=== PATIENT | female | born 1965 | race African-American/Black ===

== ENCOUNTER → 2016-05-28 | Day surgery (SDC) | payer OTHER ==
[~2016-05-28] MED LIST: ACETAMINOPHEN PO; ACETAMINOPHEN650 M1 PO; ADALATCC PO; ADVAIR 5001 DISK W/D PO; ADVAIR INH; ALBUTEROL 0.5ML INH; ALBUTEROL MININEB NEB; ALBUTEROL NEB; ALBUTEROL/ATROVENT NEB; ALBUTEROL17 GM INH; ALLERGY RELIEF10 M1 PO; ALLERGY25 MG PO; ASPIRIN EC81 M1 PO; ASPIRIN PO; ASPIRIN81 M1 PO; ASPIRIN81 MG PO; ASTHMACORT; AUGMENTIN PO; AZMACORT20 GM; AZMACORT20 GM INH; BACTRIM DS TABL1 TA2 PO; CARVEDILOL12.5 MG PO; CARVEDILOL25 MG PO; CLARITIN10 MG PO; COLACE PO; COLCRYS0.6 MG PO; COMBIVENT INH14.7 G1 IH; COMBIVENT INH14.7 GM; COMBIVENT INH14.7 GM INH; COMBIVENT MININEB NEB; COMBIVENT U/D3 M2 INH; COMBIVENT14.7 GM INH; COREG PO; COUMADIN; DARVOCET-N 1001 TAB PO; DEMADEX PO; DOCU SOFT100 M1 PO; DOXYCYCLINE HY100 M1 PO; DOXYCYCLINE PO; DUONEB 2.5-0.5 M3 ML INH; DUONEB 2.5-0.5 M3 ML NEB; ENTRESTO; FEOSOL PO; FERRO-TIME325 MG PO; FERROUS SULFATE PO; FLONASE16 GM; FLOVENT DISKU100 MCG IH; FLOVENT HFA10.6 G1 INH; FLOVENT HFA12 GM INH; FLOVENT HFA13 GM INH; GUAIFENESIN LA600 M1 PO; HUMIBID-LA600 MG PO; HUMIBID1200 MG PO; HYDRALAZINE HCL50 MG PO; HYDROCODON-ACE1 EAC1 PO; HYDROCODON-ACE1 EAC5 PO; IRON PO; IRON325 ( 651 PO; IRON325 ( 652 PO; K-DUR10 MEQ PO; K-DUR20 ME1 PO; K-DUR20 ME2 PO; KCL PO; KLONOPIN0.5 MG PO; KLOR-CON PO; LASIX; LASIX PO; LEVAQUIN PO; LEVAQUIN750 MG PO; LEXAPRO PO; LISINOPRIL PO; LISINOPRIL2.5 MG PO; LISINOPRIL20 MG PO; LORTAB 10-5001 EACH PO; LORTAB 7.5-5001 TAB PO; LOSARTAN POTAS100 MG PO; MEDROL DOSEPAK4 MG PO; MEDROL PO; MEDROL4 MG/DOSE- PO; METOPROLOL TAR25 MG PO; MOTRIN600 MG PO; MUCINEX; MULTI VITAMIN1 EACH PO; MULTI-DAY VITAM1 TAB PO; MULTI-VITAMIN1 EAC1 PO; MYLANTA GAS80 MG PO; NAPROSYN500 MG PO; NIFEDIPINE ER90 M1 PO; NIFEDIPINE ER90 MG PO; PAIN RELIEF325 M1 PO; PERCOCET5/325 PO; PHENERGAN PO; PHENOLATE; PREDNISONE PO; PREDNISONE10 MG/DOSE PO; PROCARDIA XL PO; PROCARDIA90 MG/BOTT PO; PROVERA10 MG PO; RANITIDINE HCL150 M1 PO; ROBITUSSIN A-C S5 ML PO; ROBITUSSIN DM T10 ML PO; ROBITUSSIN100 MG/51 PO; SEREVENT D50 MCG/DIS PO; SYMBICORT INH; TEMOVATE30 GM TOP; THEOPHYLLIN PO; TORSEMIDE10 MG PO; TRAMADOL HCL50 M2 PO; TUSSIN15 MG/5 M1 PO; VIBRAMYCIN100 M1 DOB; VIBRAMYCIN100 M1 PO; VICODIN 5/500 T1 TAB PO; ZANTAC PO; ZANTAC150 MG PO; ZITHROMAX PO; ZITHROMAX1 G/PKT PO
--- NOTE | ~2016-05-28 | US85 ---
[facility] A Service of [facility] RADIOLOGY TEXT RESULTS PATIENT: EPIFANIO GALINDO LOCATION: [place] OPERATOR : 63 UNIT #: [id number] AGE: [address]: DOUG ROMEO SEX: F ORDER DR: [id number] [facility] [address] [place], [place] [address] [id number] O MR#: [id number] Acc #: [id number] NAME: EPIFANIO GALINDO. : 1965 SEX: F STUDY DATE/TIME: 05/28/2016 18:12 UNIT: [place] OPERATOR ROOM: STUDY DESCRIPTION: LE Veins Unilat or Ltd Stdy Attending Physician: Doug Romeo Aprn Referring Physician: Primary Care Physician No Ordering Physician: Ed Teja Bryant M.D. Primary Care Physician: Primary Care Physician No MEDICAL IMAGING REPORT This report is preliminary unless electronic signature is present EXAM Right lower extremity venous duplex, 05/28/2016 HISTORY Right lower extremity pain, pain in right knee and thigh for 1 day with history of previous right lower extremity DVT July 2015, evaluate for deep vein thrombosis. TECHNIQUE Venous ultrasound examination of the right lower extremity was performed using grayscale, spectral Doppler and color flow Doppler imaging. FINDINGS The examination is negative. There is no evidence of right lower extremity deep venous thrombus from the groin to the lower calf. Visualized greater saphenous vein is also patent. IMPRESSION Negative examination. No evidence of right lower extremity deep venous thrombosis. Dictated by... Kyree Melara M.D. THIS IS AN ELECTRONICALLY VERIFIED REPORT Kyree Melara M.D. at 05/29/2016 8:10 AM KRT/jamey TD: 05/28/2016 23:14 JOB #: [id number] MEDICAL IMAGING REPORT [facility] A Service [facility] RADIOLOGY TEXT RESULTS PATIENT: EPIFANIO GALINDO LOCATION: [facility] : 63 UNIT #: [id number] AGE: [address]: DOUG ROMEO SEX: F ORDER DR: COPY
--- NOTE | ~2016-05-28 | CR170 ---
[facility] A Service of [facility] RADIOLOGY TEXT RESULTS PATIENT: EPIFANIO GALINDO LOCATION: [facility] : 63 UNIT #: [id number] AGE: [address]: DOUG ROMEO SEX: F ORDER DR: [id number] [facility] [address] [place], [place] [address] [id number] O MR#: [id number] Acc #: [id number] NAME: EPIFANIO GALINDO. : 1965 SEX: F STUDY DATE/TIME: 05/28/2016 20:28 UNIT: [facility] ROOM: STUDY DESCRIPTION: CR Knee 2 Views Rt Attending Physician: Doug Romeo Aprn Referring Physician: Primary Care Physician No Ordering Physician: Diane Hernadez M.D. Primary Care Physician: No Primary Care Physician MEDICAL IMAGING REPORT This report is preliminary unless electronic signature is present EXAM 2 views right knee. Date: 05/28/2016 at 20:28 HISTORY Right anterior knee pain since yesterday. No known injury. COMPARISON None. FINDINGS No acute fracture is seen. There is advanced medial and patellofemoral compartment degenerative change with abhc-al-sfys configuration and osteophyte formation. Prominent lateral compartment osteophyte formation and tibial the spine spurring is also noted. What appears be a calcified loose body is seen within the infrapatellar region measuring 1.8 x 1.2 cm. A cannulated screw extends into the medial tibial plateau. No definite joint effusion. IMPRESSION 1. Advanced degenerative changes of the patellofemoral and medial compartment with oclc-vh-pxnt configuration. What appears to be a calcified loose body is seen in the infrapatellar region measuring up to 1.8 cm. 2. Surgical changes of the tibial plateau. 3. Varus configuration of the knee. Dictated by... Khadra Gutierrez M.D. [facility] A Service of [facility] RADIOLOGY TEXT RESULTS PATIENT: EPIFANIO GALINDO LOCATION: [facility] : 63 UNIT #: [id number] AGE: [address]: DOUG ROMEO SEX: F ORDER DR: THIS IS AN ELECTRONICALLY VERIFIED REPORT Khadra Gutierrez M.D. at 05/29/2016 2:43 PM Iker TD: 05/29/2016 00:14 JOB #: [id number] MEDICAL IMAGING REPORT COPY
--- NOTE | ~2016-05-28 | EKG ---
PATIENT: EPIFANIO GALINDO UNIT #: [id number] Ventricular Rate: 92 BPM Atrial Rate: 92 BPM P-R Interval: 216 ms QRS Duration: 104 ms Q-T Interval: 388 ms QTC Calculation(Bezet): 479 ms P [place]: 76 degrees Calculated R [place]: -6 degrees Calculated T [place]: 74 degrees Diagnosis Line: Sinus rhythm with 1st degree A-V block Diagnosis Line: Otherwise normal ECG Diagnosis Line: Diagnosis Line: Confirmed by RAJWINDER WHITLEY MD ([id number]) on 05/29/2016 Diagnosis Line: 6:22:55 PM INTERPRETING MD: ANGI HENRIQUEZ
--- NOTE | ~2016-05-28 | CR63 ---
[facility] A Service of [facility] RADIOLOGY TEXT RESULTS PATIENT: EPIFANIO GALINDO LOCATION: [facility] : 63 UNIT #: [id number] AGE: [address]: DOUG ROMEO SEX: F ORDER DR: [id number] [facility] [address] [place], [place] [address] [id number] O MR#: [id number] Acc #: [id number] NAME: EPIFANIO GALINDO. : 1965 SEX: F STUDY DATE/TIME: 05/28/2016 17:36 UNIT: [facility] ROOM: STUDY DESCRIPTION: CR Chest 2 View Attending Physician: Doug Romeo Aprn Referring Physician: Primary Care Physician No Ordering Physician: Ed Teja Bryant M.D. Primary Care Physician: Primary Care Physician No MEDICAL IMAGING REPORT This report is preliminary unless electronic signature is present EXAM PA and lateral chest DATE 05/28/2016 at 17:36 HISTORY Shortness of breath, cough and low-grade fever for 4 days. COMPARISON AP portable chest 11/27/2015 FINDINGS The study is degraded secondary to underpenetration related to patient's body habitus. There is stable cardiac enlargement with probable central vascular congestion. There may be mild central vascular congestion, but no overt changes of pulmonary edema are seen. No consolidation. No pleural effusion or pneumothorax. Right neck-approach central line extends to the upper right atrial level. No visible pneumothorax. IMPRESSION 1. Study limited by patient body habitus. 2. Stable cardiomegaly with mild central vascular congestion. No overt changes of pulmonary edema are appreciated. Dictated by... Khadra Gutierrez M.D. THIS IS AN ELECTRONICALLY VERIFIED REPORT Khadra Gutierrez M.D. at 05/29/2016 2:42 PM [facility] A Service of [facility] RADIOLOGY TEXT RESULTS PATIENT: EPIFANIO GALINDO LOCATION: [facility] : 63 UNIT #: [id number] AGE: [address]: DOUG ROMEO SEX: F ORDER DR: TD: 05/28/2016 22:57 JOB #: [id number] MEDICAL IMAGING REPORT COPY
[2016-05-28 18:04] LABS: ALBUMIN SERUM 3.2 g/dL (3.5-5.0); BILIRUBIN,TOTAL 0.6 mg/dL (0.2-2.0); BUN/CREATININE RATIO 5.71; CALCIUM SERUM 8.4 mg/dL (8.4-10.2); CREATININE SERUM 3.5 mg/dL (0.6-1.4); GLOM FILT RATE Estimated 17.6 mL/min (>60); POTASSIUM 4.1 mmol/L (3.5-5.1); PROTEIN TOTAL SERUM 8.4 g/dL (6.0-8.3)
[2016-05-28 19:21] LABS: BASOPHIL% 0.6 % (0-2.5); EOSINOPHIL# 0.1 X10e3 (0-0.7); HEMATOCRIT 35.7 % (35.0-45.0); HEMOGLOBIN 11.5 gm/dL (12.0-16.0); LYMPHOCYTE# 1.1 X10e3 (1.0-3.5); LYMPHOCYTE% 15.2 % (17.0-45.0); MEAN CELL VOLUME 85.9 FL (83-96); MEAN CORPUSCULAR HEMOGLOBIN 27.5 PG (28-34); MEAN CORPUSCULAR HGB CONC 32.1 g/dL (30-36); MEAN PLATELET VOLUME 9.4 FL (6.5-11.5); MONOCYTE# 0.5 X10e3 (0-1.0); MONOCYTE% 7.9 % (3.0-12.0); NEUTROPHIL# 5.2 X10e3 (1.5-7.1); NEUTROPHIL% 75.3 % (40-75); PLATELET COUNT 132 X10e3 (140-420); RED BLOOD COUNT 4.16 X10e (3.90-5.30); RED CELL DISTRIBUTION WIDTH 17.4 % (11.0-15.5); WHITE BLOOD COUNT 6.9 X10e3 (4.0-10.5)
[2016-05-28 19:24] LABS: DIFF IND NO
[2016-05-28 20:02] LABS: INR 1.8; PROTHROMBIN TIME (PATIENT) 19.9 SECONDS (9.6-11.5)
[2016-05-28 20:11] LABS: POC - CKMB <1.0 ng/mL (0.0-7.9); POC - TROPONIN <0.05 ng/mL (<=0.05)
== END | disposition home or self-care (01) ==
LOC: CED 17:05 → COPS 17:40
PROVIDERS: Emergency Medicine; Nurse Practitioner Family
DX: M25.561 Pain in right knee (principal); M25.551 Pain in right hip; M79.651 Pain in right thigh; N19 Unspecified kidney failure; I10 Essential (primary) hypertension; J44.9 Chronic obstructive pulmonary disease, unspecified; J45.909 Unspecified asthma, uncomplicated; Z86.711 Personal history of pulmonary embolism; Z79.899 Other long term (current) drug therapy; Z79.82 Long term (current) use of aspirin; Z79.2 Long term (current) use of antibiotics; Z88.1 Allergy status to other antibiotic agents
CPT/HCPCS: 29530; 71020; 73560; 80053; 82553; 84484; 85025; 85610; 85730; 93005; 93971; 94640; 99284

== ENCOUNTER 2016-07-23 11:45 | Emergency (ER) | payer OTHER ==
--- NOTE | ~2016-07-23 | CR63 ---
[facility] A Service of [facility] RADIOLOGY TEXT RESULTS PATIENT: EPIFANIO GALINDO LOCATION: SED : 63 UNIT #: [id number] AGE: [address]: Aida Govea MD SEX: F ORDER DR: [id number] [address] [address] [id number] E MR#: [id number] Acc #: [id number] NAME: EPIFANIO GALINDO : 1965 SEX: F STUDY DATE/TIME: 07/23/2016 12:21 UNIT: SED ROOM: STUDY DESCRIPTION: CR Chest 2 View Attending Physician: Aida Govea M.D. Ordering Physician: Aida Govea M.D. Primary Care Physician: Reynaldo Zuniga A.P.R.N. MEDICAL IMAGING REPORT This report is preliminary unless electronic signature is present. EXAM Chest 2 views 07/23/2016 1221 hours HISTORY 51-year-old woman with 4-day history of shortness of air, vomiting and congestion, history of renal failure on dialysis, asthma. COMPARISON 05/28/2016. FINDINGS The patient is unable to stand and therefore seated AP and lateral views were performed on a stretcher. There is a right central venous catheter with tip in the right atrium. There is stable cardiomegaly and tortuous aorta. There is enlargement of the pulmonary arteries similar to prior study suggesting underlying pulmonary arterial hypertension. There is no definite acute pulmonary density or pleural effusion. IMPRESSION Exam is limited by seated technique and large body habitus. Right central venous catheter tip is in the right atrium similar to 05/28/2016. There is stable cardiomegaly. There is enlargement of the pulmonary arteries suggesting pulmonary arterial hypertension. There is no definite acute pulmonary density or pleural effusion. Dictated by... Chana Grimes M.D. THIS IS AN ELECTRONICALLY VERIFIED REPORT Chana Grimes M.D. at 07/23/2016 2:29 PM [facility] A Service of [facility] RADIOLOGY TEXT RESULTS PATIENT: EPIFANIO GALINDO [place] [facility] [place] 63 UNIT #: [id number] AGE: [address]: Aida Govea MD SEX: F ORDER DR: PEGGY/edil TD: 07/23/2016 13:35 JOB #: [id number] MEDICAL IMAGING REPORT Page 1 of 1
[~2016-07-23 11:45] MED LIST changes: -LASIX
[2016-07-23] MEDS ORDERED: LASIX (11:46)
[2016-07-23 12:03] LABS: INFLUENZA A NEG (NEG); INFLUENZA B NEG (NEG)
[2016-07-23 12:07] LABS: BASOPHIL# 0.1 X10e3 (0-0.3); BASOPHIL% 1.6 % (0-2.5); EOSINOPHIL# 0.1 X10e3 (0-0.7); EOSINOPHIL% 2.3 % (0.0-7.0); HEMATOCRIT 34.7 % (35.0-45.0); HEMOGLOBIN 11.3 gm/dL (12.0-16.0); LYMPHOCYTE# 0.5 X10e3 (1.0-3.5); LYMPHOCYTE% 8.5 % (17.0-45.0); MEAN CELL VOLUME 89.2 FL (83-96); MEAN CORPUSCULAR HGB CONC 32.6 g/dL (30-36); MEAN PLATELET VOLUME 10.1 FL (6.5-11.5); MONOCYTE# 0.3 X10e3 (0-1.0); MONOCYTE% 5.5 % (3.0-12.0); NEUTROPHIL# 5.1 X10e3 (1.5-7.1); NEUTROPHIL% 82.1 % (40-75); PLATELET COUNT 137 X10e3 (140-420); RED BLOOD COUNT 3.89 X10e (3.90-5.30); RED CELL DISTRIBUTION WIDTH 14.7 % (11.0-15.5); WHITE BLOOD COUNT 6.3 X10e3 (4.0-10.5)
[2016-07-23 12:11] LABS: DIFF IND NO
[2016-07-23 12:20] LABS: PROTHROMBIN TIME (PATIENT) 23.2 SECONDS (9.5-12.4)
[2016-07-23 12:26] LABS: BUN/CREATININE RATIO 4.21; CALCIUM SERUM 8.2 mg/dL (8.4-10.2); CREATININE SERUM 3.8 mg/dL (0.6-1.4); GLOM FILT RATE Estimated 14.9 mL/min (>60); POTASSIUM 3.7 mmol/L (3.5-5.1)
== END 2016-07-23 13:22 | disposition home or self-care (01) ==
LOC: SED 11:45
PROVIDERS: Student in an Organized Health Care Education/Training Program
DX: J44.9 Chronic obstructive pulmonary disease, unspecified (principal); J11.1 Influenza due to unidentified influenza virus with other respiratory manifestations; R11.2 Nausea with vomiting, unspecified; I12.0 Hypertensive chronic kidney disease with stage 5 chronic kidney disease or end stage renal disease; N18.6 End stage renal disease; Z79.899 Other long term (current) drug therapy; Z88.5 Allergy status to narcotic agent; Z88.1 Allergy status to other antibiotic agents
CPT/HCPCS: 36415; 71020; 80048; 83880; 85025; 85610; 87651; 87804; 94640; 96372; 99284; J2930

== ENCOUNTER 2016-08-16 10:03 | Emergency (ER) | payer OTHER ==
--- NOTE | ~2016-08-16 | EKG ---
PATIENT: EPIFANIO GALINDO UNIT #: [id number] Ventricular Rate: 89 BPM Atrial Rate: 89 BPM P-R Interval: 216 ms QRS Duration: 110 ms Q-T Interval: 406 ms QTC Calculation(Bezet): 493 ms P [place]: 74 degrees Calculated R [place]: 103 degrees Calculated T [place]: 56 degrees Diagnosis Line: Sinus rhythm with 1st degree A-V block Diagnosis Line: Rightward axis Diagnosis Line: Prolonged QT Diagnosis Line: Abnormal ECG Diagnosis Line: When compared with ECG of 28-MAY-2016 17:12, Diagnosis Line: Questionable change in QRS axis Diagnosis Line: Confirmed by KANDACE CAMACHO MD ([id number]) on Diagnosis Line: 08/16/2016 4:32:31 PM INTERPRETING MD: DOUG HENRIQUEZ
[~2016-08-16 10:03] MED LIST changes: +LASIX
[2016-08-16 11:47] LABS: BASOPHIL% 0.7 % (0-2.5); EOSINOPHIL# 0.1 X10e3 (0-0.7); EOSINOPHIL% 3.2 % (0.0-7.0); HEMATOCRIT 33.3 % (35.0-45.0); HEMOGLOBIN 10.4 gm/dL (12.0-16.0); LYMPHOCYTE# 0.9 X10e3 (1.0-3.5); LYMPHOCYTE% 19.1 % (17.0-45.0); MEAN CORPUSCULAR HEMOGLOBIN 28.5 PG (28-34); MEAN CORPUSCULAR HGB CONC 31.3 g/dL (30-36); MONOCYTE# 0.4 X10e3 (0-1.0); MONOCYTE% 7.8 % (3.0-12.0); NEUTROPHIL# 3.3 X10e3 (1.5-7.1); NEUTROPHIL% 69.2 % (40-75); PLATELET COUNT 128 X10e3 (140-420); RED BLOOD COUNT 3.65 X10e (3.90-5.30); RED CELL DISTRIBUTION WIDTH 14.9 % (11.0-15.5); WHITE BLOOD COUNT 4.7 X10e3 (4.0-10.5)
[2016-08-16 11:55] LABS: DIFF IND NO
[2016-08-16 11:56] LABS: POC - CKMB <1.0 ng/mL (0.0-7.9); POC - TROPONIN <0.05 ng/mL (<=0.05)
[2016-08-16 12:04] LABS: INR 1.6; PARTIAL THROMBOPLASTIN TIME 34.6 SECONDS (23.5-31.3); PROTHROMBIN TIME (PATIENT) 16.6 SECONDS (9.6-11.5)
[2016-08-16 12:23] LABS: ALBUMIN SERUM 2.8 g/dL (3.5-5.0); BILIRUBIN, DIRECT 0.1 mg/dL (0.0-0.2); BILIRUBIN,INDIRECT 0.2 mg/dL (0.0-0.9); BILIRUBIN,TOTAL 0.3 mg/dL (0.2-2.0); BUN/CREATININE RATIO 3.92; CALCIUM SERUM 8.8 mg/dL (8.4-10.2); CREATININE SERUM 5.6 mg/dL (0.6-1.4); GLOM FILT RATE Estimated 9.3 mL/min (>60); POTASSIUM 3.7 mmol/L (3.5-5.1); PROTEIN TOTAL SERUM 7.1 g/dL (6.0-8.3)
== END 2016-08-16 13:53 | disposition home or self-care (01) ==
LOC: CED 10:03
PROVIDERS: Emergency Medicine
DX: R07.9 Chest pain, unspecified (principal); J45.909 Unspecified asthma, uncomplicated; N18.6 End stage renal disease; Z98.51 Tubal ligation status; Z79.01 Long term (current) use of anticoagulants; Z98.890 Other specified postprocedural states; Z88.5 Allergy status to narcotic agent; Z88.1 Allergy status to other antibiotic agents
CPT/HCPCS: 80048; 80076; 82553; 84484; 85025; 85610; 85730; 93005; 99284

== ENCOUNTER 2016-10-11 17:43 | Emergency (ER) | payer OTHER ==
[~2016-10-11] VITALS: Ht 165.1 cm; Wt 151.9 kg
--- NOTE | ~2016-10-11 | EKG ---
PATIENT: EPIFANIO GALINDO UNIT #: [id number] Ventricular Rate: 96 BPM Atrial Rate: 96 BPM P-R Interval: 216 ms QRS Duration: 102 ms Q-T Interval: 380 ms QTC Calculation(Bezet): 480 ms P [place]: 72 degrees Calculated R [place]: -50 degrees Calculated T [place]: 67 degrees Diagnosis Line: Sinus rhythm with 1st degree A-V block with Diagnosis Line: Possible Premature atrial complexes with Aberrant Diagnosis Line: conduction Diagnosis Line: Left axis deviation Diagnosis Line: Prolonged QT Diagnosis Line: Abnormal ECG Diagnosis Line: When compared with ECG of 16-AUG-2016 10:34, Diagnosis Line: Aberrant conduction is now Present Diagnosis Line: QRS axis Shifted left Diagnosis Line: Confirmed by AYSE DAVIS MD ([id number]) on Diagnosis Line: 10/13/2016 12:44:53 PM INTERPRETING MD: SUSAN HENRIQUEZ
--- NOTE | ~2016-10-11 | CT57 ---
[facility] A Service of [facility] RADIOLOGY TEXT RESULTS PATIENT: EPIFANIO GALINDO LOCATION: SED : 63 UNIT #: [id number] AGE: [address]: AYSE STORM SEX: F ORDER DR: [id number] [address] [address] [id number] E MR#: [id number] Acc #: [id number] NAME: EPIFANIO GALINDO : 1965 SEX: F STUDY DATE/TIME: 10/11/2016 19:32 UNIT: SED ROOM: STUDY DESCRIPTION: CT Chest Wo Cont Attending Physician: Ayse Storm A.P.R.N. Ordering Physician: Ayse Storm A.P.R.N. Primary Care Physician: No Primary Care Physician MEDICAL IMAGING REPORT This report is preliminary unless electronic signature is present. EXAM CT chest without IV contrast. COMPARISON Single view of the chest dated October 11, 2016, and CT chest dated April 23, 2012. INDICATIONS 51-year-old female with dyspnea and chest pain for [address] exam was performed with one or more of the following radiation dose reduction techniques: automatic exposure control, adjustment of mA and/or kV according to patient size, and iterative reconstruction. Axial CT imaging of the chest was performed without IV contrast. Coronal and sagittal reformats were constructed. Lack of contrast limits evaluation of vasculature and adenopathy. There is diffuse multilevel degenerative disc endplate change of the pjx-hr-aulip thoracic spine, and there is bulky bridging osteophyte formation at the left costovertebral junction on the left at T8. This is also noted to a lesser extent on the right at T8. Similar findings are seen at other levels of the thoracic spine. No acute fractures or suspicious osseous lesions. Advanced osteoarthritis of both glenohumeral joints. No pleural effusion, pneumothorax or acute airspace disease. There is geographic ground-glass attenuation throughout the lungs perhaps reflecting air trapping in this obese patient. Normal heart size with small pericardial effusion. Right internal jugular catheter tip terminates deep in the right atrium. No evidence of adenopathy. Normal caliber of the thoracic aorta. However, the pulmonary artery is significantly dilated at 4.4 cm. There is calcification of the left anterior descending coronary artery. There has been prior cholecystectomy. Exophytic density extending from the superior pole of the right kidney measuring up to 7 mm, not seen in 2013, possibly STS. [facility] A Service of [facility] RADIOLOGY TEXT RESULTS PATIENT: EPIFANIO GALINDO LOCATION: SED : 63 UNIT #: [id number] AGE: [address]: AYSE STORM SEX: F ORDER DR: reflecting an exophytic cyst, but too small to characterize. IMPRESSION 1. Severe dilatation of the main pulmonary artery measuring up to 4.4 cm with diffuse mosaic ground-glass attenuation throughout the lungs, a combination of findings most consistent with pulmonary arterial hypertension. 2. Normal heart size with a small pericardial effusion. 3. Right internal jugular catheter tip terminates deep in the right atrium. Consider repositioning. 4. Diffuse degenerative changes of the thoracic spine. 5. Calcifications of the left anterior descending coronary artery. 6. Prior cholecystectomy. 7. 7 mm incompletely imaged exophytic density extending from the superior pole of the right kidney, not well characterized on this study and actually too small to characterize. This appears new from 2013. Dictated by... Jason Mcnair M.D. THIS IS AN ELECTRONICALLY VERIFIED REPORT Jason Mcnair M.D. at 10/18/2016 8:15 PM Kassi TD: 10/12/2016 00:55 JOB #: [id number] MEDICAL IMAGING REPORT Page 1 of 1
--- NOTE | ~2016-10-11 | CR72 ---
[facility] A Service [facility] RADIOLOGY TEXT RESULTS PATIENT: EPIFANIO GALINDO LOCATION: SED : 63 UNIT #: [id number] AGE: [address]: AYSE BECKWITH SEX: F ORDER DR: [id number] [address] [address] [id number] E MR#: [id number] Acc #: [id number] NAME: EPIFANIO GALINDO. : 1965 SEX: F STUDY DATE/TIME: 10/11/2016 18:11 UNIT: SED ROOM: STUDY DESCRIPTION: CR Chest Single View Portable Attending Physician: Ayse Beckwith A.P.R.N. Ordering Physician: Ronnie Avelar M.D. Primary Care Physician: No Primary Care Physician MEDICAL IMAGING REPORT This report is preliminary unless electronic signature is present. EXAM Portable AP view of the chest COMPARISON 11/19/2016 and May 28, 2016. INDICATION A 51-year-old female with dyspnea and chest pain for 5 days. FINDINGS Exam is extremely limited by body habitus attenuation. In particular, there is hazy attenuation over the mid and lower chest bilaterally. This limits evaluation. Large-bore right internal jugular catheter is again noted, the tip of which likely terminates in the right atrium. Heart size appears within normal limits. No definite acute abnormality. No evidence of pneumothorax. IMPRESSION 1. Large bore right internal jugular catheter appears to terminate in the right atrium. Clinical correlation recommended. 2. Hazy attenuation over the chest bilaterally is favored due to patient body habitus and prominent soft tissue shadows. Bilateral pleural effusions cannot be excluded. Similarly it is difficult to exclude airspace disease in both lung bases although the appearance is not particularly changed from comparison exams. Dictated by... Jason Mcnair M.D. [facility] A Service [facility] RADIOLOGY TEXT RESULTS PATIENT: EPIFANIO GALINDO LOCATION: SED : 63 UNIT #: [id number] AGE: [address]: AYSE BECKWITH SEX: F ORDER DR: THIS IS AN ELECTRONICALLY VERIFIED REPORT Jason Mcnair M.D. at 10/16/2016 1:19 PM Kole TD: 10/11/2016 23:38 JOB #: [id number] MEDICAL IMAGING REPORT Page 1 of 1
[2016-10-11 18:14] LABS: BASOPHIL% 0.8 % (0-2.5); EOSINOPHIL# 0.1 X10e3 (0-0.7); EOSINOPHIL% 1.4 % (0.0-7.0); HEMATOCRIT 38.9 % (35.0-45.0); HEMOGLOBIN 12.6 gm/dL (12.0-16.0); LYMPHOCYTE# 0.9 X10e3 (1.0-3.5); LYMPHOCYTE% 17.6 % (17.0-45.0); MEAN CELL VOLUME 86.7 FL (83-96); MEAN CORPUSCULAR HEMOGLOBIN 28.1 PG (28-34); MEAN CORPUSCULAR HGB CONC 32.5 g/dL (30-36); MEAN PLATELET VOLUME 10.9 FL (6.5-11.5); MONOCYTE# 0.3 X10e3 (0-1.0); MONOCYTE% 6.8 % (3.0-12.0); NEUTROPHIL# 3.7 X10e3 (1.5-7.1); NEUTROPHIL% 73.4 % (40-75); PLATELET COUNT 149 X10e3 (140-420); RED BLOOD COUNT 4.49 X10e (3.90-5.30); RED CELL DISTRIBUTION WIDTH 16.7 % (11.0-15.5)
[2016-10-11 18:18] LABS: DIFF IND NO
[2016-10-11 18:33] LABS: POC - CKMB 1.1 ng/mL (0.0-7.9); POC - TROPONIN <0.05 ng/mL (<=0.05)
[2016-10-11 18:35] LABS: ALBUMIN SERUM 3.2 g/dL (3.5-5.0); BILIRUBIN, DIRECT 0.1 mg/dL (0.0-0.2); BILIRUBIN,INDIRECT 0.4 mg/dL (0.0-0.9); BILIRUBIN,TOTAL 0.5 mg/dL (0.2-2.0); BUN/CREATININE RATIO 4.66; CALCIUM SERUM 8.9 mg/dL (8.4-10.2); GLOM FILT RATE Estimated 8.6 mL/min (>60); POTASSIUM 3.4 mmol/L (3.5-5.1); PROTEIN TOTAL SERUM 8.8 g/dL (6.0-8.3)
== END 2016-10-11 23:08 ==
LOC: SED 17:43
PROVIDERS: Emergency Medicine; Nurse Practitioner
DX: R07.9 Chest pain, unspecified (principal); I11.0 Hypertensive heart disease with heart failure; I50.9 Heart failure, unspecified; Z88.5 Allergy status to narcotic agent; Z88.1 Allergy status to other antibiotic agents
CPT/HCPCS: 36415; 71010; 71250; 80048; 80076; 82553; 83880; 84484; 85025; 93005; 94640; 96374; 99285; J2930